=== PATIENT | male | born 1960 | race Caucasian/White ===

== ENCOUNTER 2017-04-09 19:20 | Emergency (ER) | payer OTHER ==
[~2017-04-09] VITALS: Ht 177.8 cm; Wt 77.0 kg
[2017-04-09] MEDS ORDERED: SODIUM CHLORIDE 0.9% 1,000 ML IV ONE (20:30)
[2017-04-10 00:30] VITALS: BP 121/69
== END 2017-04-10 00:52 | disposition home or self-care (01) ==
LOC: EMS 19:22
DX: S42.032A Displaced fracture of lateral end of left clavicle, initial encounter for closed fracture (principal); S62.101A Fracture of unspecified carpal bone, right wrist, initial encounter for closed fracture; S20.212A Contusion of left front wall of thorax, initial encounter; F10.20 Alcohol dependence, uncomplicated; Y90.9 Presence of alcohol in blood, level not specified; W18.30XA Fall on same level, unspecified, initial encounter; Y93.89 Activity, other specified; Y92.89 Other specified places as the place of occurrence of the external cause; Y99.8 Other external cause status
CPT/HCPCS: 29125; 70450; 71010; 72125; 73030; 73110; 96360; 99284; J7030